=== PATIENT | male | born 1940 | race Caucasian/White ===

== ENCOUNTER → 2016-09-22 | Outpatient (CLI) | payer MEDICARE ==
[~2016-09-22] MED LIST: ALB0.5V INH; AMOX1TAB12 PO; ASPI-345 PO; ATN50T PO; BUDE6HFA IH; DXM4T PO; FNST5T PO; OMEP20CA12 PO; SIMV40TA2 PO; TERA2CAP4 PO
[2016-09-22 20:05] VITALS: BP 138/72
--- NOTE | 2016-09-22 20:05 | Urgent Care T Sheet Gen (E) ---
Intake General Temperature (Fahrenheit): 98.4 Pulse: 80 Blood Pressure Systolic: 138 Blood Pressure Diastolic: 72 Respirations: 16 SPO2: 93 Chief Complaint: Sore on right arm Description of Symptoms 76 year old male presents with sore on right arm. Pt states about 3 weeks ago he woke up with this area on his bleeding. He is on Plavix and ASA. States it popped and blood came out. He states it puffed up again and again blood came out. He was pressured by his sister to get it checked out. No redness, fever or chills. Source: Patient Exam Limitations: No limitations History of Present Illness Onset & Duration: Weeks (3), Changes over time Timing: Still present Severity: Mild Modifying Factors: None Associated Symptoms: Denies symptoms Recent Trauma: No Similar Sympotms Previously: No Allergies: Coded Allergies: No Known Allergies (Verified Allergy, 06/20/12) Home Meds Reported Medications Albuterol (Proventil 0.5%)2.5 Mg/0.5 Ml Nebu2.5 Mg INH Q6H 08/06/14 Budesonide/Formoterol Fumarate (Symbicort 160/4.5 mcg Inhaler)1 Inhaler Aero1 Inhaler IH UD 06/22/12 Aspirin 81 Mg [id number] Mg PO DAILY 06/22/12 Omeprazole 20 Mg Capsule.dr20 Mg PO DAILY 06/20/12 Finasteride 5 Mg Tablet5 Mg PO DAILY 06/20/12 Terazosin HCl 2 Mg Capsule2 Mg PO HS 06/20/12 Simvastatin 40 Mg [id number] Mg PO HS 06/20/12 Atenolol 50 Mg Iqlins85 Mg PO DAILY 06/20/12 Respiratory Constitutional Symptoms: No Chills, No Diaphoresis, No Fever, No Malaise, No Weakness EENTM: No No symptoms reported Respiratory: No No symptoms reported Cardiovascular: No No symptoms reported Gastrointestinal/Abdominal: No No symptoms reported Skin: Lesions (right arm blood blister) All Other Systems Reviewed Remaining Systems: All other systems reviewed with negative findings Past Uinonzw-Vqavgr-Xoqljx Hx Patient's Social History Infectious Disease Exposure: No Recent foreign travel: No Surgeries/Hospitalizations Hospitalization/Surgery Hx: Quad bypass Abdominal aneurysm gall bladder hernias x2 Respiratory Respiratory History: COPD Cardiovascular Cardiovascular History: Hypertension, Hypercholesterolemia, Other, see comment Comment: LEAKY VALVE, PT DOESN'T KNOW WHICH Neuro/Muscular Neuro/Muscular History: Headache, Cataracts Comment: L eye red/puffy/with puss Reproductive System Sexually Transmitted Diseases: No Genitouinary Genitourinary History: Hesitancy Gastrointestinal GI/Endocrine History: Gallbladder problems Diabetes Diabetes: No HEENT Impaired Vision: Glasses Hearing Impaired: None Integumentary Integumentary History: Skin cancer Psychosocial Behavior Disorders: None Blood Transfusions Hx of Blood transfusions: No Physical Exam Physical Exam General Appearance: WD/WN No apparent distress Eyes, Ears, Nose, Throat Ex: PERRL/EOMI Pharynx normal Neck Exam: Non tender Full range of motion Supple Normal inspection Normal thyroid Respiratory Exam: Chest non-tender Lungs clear Normal breath sounds No respiratory distress No accessory muscles used Cardiovascular Exam: Regular rate, rhythm No edema No gallop No JVD No murmur Skin Exam: Normal color Other (1 cm in diameter pustule filled with blood purple color change around area but no warmth, erythema, or induration.) Extremity Exam: Non-tender Full range of motion Normal capillary refill Neurologic/Psychiatric Exam: Oriented times 4 No motor deficits No sensory deficits Mood/affect nml Departure Urgent Care Impression Chief Complaint: Sore on right arm Impression: Primary Impression: Blood blister Departure Disposition: 01 HOME OR SELF-CARE Additional Disposition Comment Discussed with patient that at this time there is no evidence of infection. Discussed that there is no redness or induration. Advised that no need for antibiotics. Do not pop blister and it should reabsorb. May cover with bandaid at night to decrease risk of shearing skin on bed sheets. Follow up with PCP. Return if any redness, streaking, fever, chills, or any concerns. Condition: Stable Referrals: RADHA TRAVIS MD (PCP) End of report . DAISY YORK [employer]OTH [employer] September 22, 2016 20:04
== END ==
LOC: MHUC 18:10
PROVIDERS: ATTEND Nurse Practitioner Family
DX: S40.821A Blister (nonthermal) of right upper arm, initial encounter (principal); X58.XXXA Exposure to other specified factors, initial encounter
CPT/HCPCS: 99213